=== PATIENT | female | born 1935 | race Hispanic/Latino ===

== ENCOUNTER 2020-01-17 12:55 | Inpatient (IN) | payer OTHER ==
[~2020-01-17] VITALS: Ht 152.4 cm; Wt 59.1 kg
[~2020-01-17 12:55] MED LIST: ACET-2247 PO; CEPH250C3 PO; ELTR75TA PO; LISI10TA7 PO; PANT40TA55 PO; probiotics PO
[2020-01-17] MEDS ORDERED: SODIUM CHLORIDE 0.9% 1000ML 2,000 ML IV ONE (13:08)
[2020-01-17] MEDS ORDERED: NOREPINEPHRINE BITARTRATE 1 MG/1 ML ML IV ONE (13:14)
[2020-01-17] MEDS ORDERED: SODIUM CHLORIDE 0.9% 250 ML IV ONE (13:14)
[2020-01-17] MEDS ORDERED: DEXTROSE 50%-WATER 50 ML DISP.SYRIN IV ONE (13:29)
[2020-01-17 14:01] LABS: BASOPHILS % (AUTO) 0.5 % (0.0-5.0); EOSINOPHILS % (AUTO) 1.4 % (0.0-8.0); HEMATOCRIT 25.3 % (36-48); MEAN CORPUSCULAR HEMOGLOBIN 29.4 pg (27.0-33.0); MEAN CORPUSCULAR HGB CONC 32.8 g/dL (32.0-36.0); MEAN CORPUSCULAR VOLUME 89.7 fL (79-99); MONOCYTES % (AUTO) 5.7 % (3.0-13.0); NEUTROPHILS % (AUTO) 80.6 % (40.0-77.0); PLATELET COUNT (AUTO) 64 K/uL (130-400); RED BLOOD CELL COUNT(AUTO) 2.82 MIL/uL (4.00-5.50); RED CELL DISTRIBUTION WIDTH 13.8 % (11.0-15.5); WHITE BLOOD COUNT (AUTO) 14.3 K/uL (4.8-10.8)
[2020-01-17 14:24] LABS: INR 1.13 (0.85-1.15); PARTIAL THROMBOPLASTIN TIME 34.8 SEC (26.3-35.5); PROTHROMBIN TIME 12.1 SEC (9.6-11.6)
[2020-01-17] MEDS ORDERED: ZOSYN 3.375GM+NS 50ML 50 ML IV ONE (14:24)
[2020-01-17 14:31] LABS: PLATELET MORPHOLOGY COMMENT DECREASED
[2020-01-17] MEDS ORDERED: FAMOTIDINE/PF 20 MG/2 ML VIAL IV ONE (15:20)
[2020-01-17] MEDS ORDERED: VANCOMYCIN 1GM+NS 250ML 250 ML IV SCH (15:22)
[2020-01-17 15:29] LABS: CREATININE 4.4 mg/dL (0.5-1.5); POTASSIUM 3.9 mmol/L (3.5-5.1)
[2020-01-17 15:53] LABS: ALBUMIN 2.2 g/dL (3.5-5.0); BILIRUBIN,TOTAL 0.5 mg/dL (0.2-1.0); TOTAL PROTEIN, SERUM 5.8 g/dL (6.0-8.3); TROPONIN I 0.3 ng/mL (0.00-0.06)
[2020-01-17] MEDS ORDERED: LIDOCAINE HCL-MPF 1% 2ML VIAL IJ PRN ×2 (16:30)
[2020-01-17] MEDS ORDERED: POTASSIUM CHLORIDE 20MEQ/100ML 100 ML IV PRN (16:30)
[2020-01-17] MEDS ORDERED: ACETAMINOPHEN 325 MG TAB PO PRN ×2 (16:30)
[2020-01-17] MEDS ORDERED: ONDANSETRON HCL 4 MG/2 ML VIAL IV PRN (16:30)
[2020-01-17] MEDS ORDERED: POTASSIUM CHLORIDE 10% ELIXIR 20 MEQ/15 ML UDCUP PO PRN (16:30)
[2020-01-17] MEDS ORDERED: POTASSIUM CHLORIDE 20 MEQ ERTAB PO PRN (16:30)
[2020-01-17] MEDS ORDERED: POTASSIUM CHLORIDE 10MEQ/100ML 100 ML IV PRN (16:30)
[2020-01-17] MEDS ORDERED: LACTULOSE 20 GM/30 ML UDCUP PO PRN (16:30)
[2020-01-17] MEDS ORDERED: VANCOMYCIN PROTOCOL PER PHARMACY IV SCH (16:45)
[2020-01-17] MEDS ORDERED: PHARMACY COMMUNICATION MISC SCH (17:30)
[2020-01-17 17:36] LABS: APPEARANCE,URINE CLEAR (CLEAR); BILIRUBIN,URINE SMALL (NEGATIVE); COLOR,URINE YELLOW (YELLOW); GLUCOSE, URINE (UA) NEGATIVE (NEGATIVE); KETONES,URINE NEGATIVE (NEGATIVE); LEUKOCYTE ESTERASE ,URINE LARGE (NEGATIVE); NITRATE,URINE NEGATIVE (NEGATIVE); OCCULT BLOOD,URINE LARGE (NEGATIVE); PH,URINE 5.5 (5.0-8.0); PROTEIN,URINE 30 mg/dL (NEGATIVE); UROBILINOGEN,URINE 0.2 mg/dL (0.2-1.0)
[2020-01-17 17:46] LABS: BACTERIA,URINE Moderate /HPF (None Seen); SQUAMOUS EPITHELIAL CELL,UR Rare /HPF (0-2); TRANSITIONAL EPI CELLS,URINE Rare /HPF (None Seen); WBC,URINE 26-50 /HPF (0-1)
[2020-01-17] MEDS ORDERED: FAMOTIDINE/PF 20 MG/2 ML VIAL IV SCH (21:00)
[2020-01-17] MEDS ORDERED: QUETIAPINE FUMARATE 25 MG TAB PO SCH (21:00)
[2020-01-17 21:10] VITALS: BP 85/54
[2020-01-17] MEDS: ZOSYN 3.375GM+NS 50ML 50 ML IV SCH (21:58)
[2020-01-17] MEDS: SODIUM CHLORIDE 0.9% 1000ML 1,000 ML IV SCH (21:59)
--- NOTE | 2020-01-17 22:00 | NUR ---
Patient arrived on unit. Patient responds to name. Speech garbled. Patient non ambulatory, left foot drop. No signs of distress noted. Resting quietly in bed. at bedside answering assessment questions. I/O to R knee, patent. Multiple skin tears and wounds all over chest and limbs. Excoriation to inner thighs,groin, and rosas area. Will continue to monitor.
[2020-01-18] VITALS (8 sets, daily range): BP systolic 106–145; BP diastolic 38–79
[2020-01-18] MEDS: ZOSYN 3.375GM+NS 50ML 50 ML IV SCH ×3 (04:16→20:50)
[2020-01-18 04:33] LABS: HEMATOCRIT 24.1 % (36-48); MEAN CORPUSCULAR HEMOGLOBIN 30.4 pg (27.0-33.0); MEAN CORPUSCULAR HGB CONC 32.8 g/dL (32.0-36.0); MEAN CORPUSCULAR VOLUME 92.7 fL (79-99); RED BLOOD CELL COUNT(AUTO) 2.6 MIL/uL (4.00-5.50); RED CELL DISTRIBUTION WIDTH 14.1 % (11.0-15.5); WHITE BLOOD COUNT (AUTO) 15.7 K/uL (4.8-10.8)
[2020-01-18 04:51] LABS: CREATININE 3.7 mg/dL (0.5-1.5); POTASSIUM 3.6 mmol/L (3.5-5.1)
--- NOTE | 2020-01-18 06:55 | NUR ---
dr whitlock paged for lactic of 2.7. awaiting call back
--- NOTE | 2020-01-18 07:15 | NUR ---
DR WHEELER INFORMED OF LACTIC OF 2.7 DISCONTINUE VANCO PUT IN ORDER FOR MEDIHONEY. APPLY ON WOUNDS
[2020-01-18] MEDS ORDERED: PANTOPRAZOLE SODIUM 40 MG TABLET.DR PO SCH (09:00)
[2020-01-18] MEDS ORDERED: FAMOTIDINE/PF 20 MG/2 ML VIAL IV SCH (11:00)
[2020-01-18] MEDS: METHYLPREDNISOLONE SOD SUCC 40MG/ML 1ML IVP SCH ×3 (11:06→20:49)
[2020-01-18] MEDS: SODIUM CHLORIDE 0.9% 1000ML 1,000 ML IV SCH ×2 (11:06→17:25)
--- NOTE | 2020-01-18 11:43 | NUR ---
INITIAL SW met with patient's spouse, Cesar Torre. Patient lives with spouse. She has no home services. DME: wheelchair, rollator, cane, BSC, shower chair. Patient needs help with ADL's and does not drive. Spouse helps with both. PCP is Dr. Monique Torre. Pharmacy is [facility] located in [place]. DCP is home. Spouse stated that patient was at [facility] in the past and did not like it. He stated that he would rather take her home. Spouse will consider home health for patient. Addendum: 01/18/20 at 1145 by APARNA PACK Amended: Links added.
[2020-01-18] MEDS ORDERED: RENAL DOSE IV SCH (13:15)
[2020-01-18 14:08] LABS: MYOGLOBIN 12083 ng/mL (10-92)
[2020-01-18 14:55] LABS: CREATINE KINASE, TOTAL 20513 U/L (21-232)
[2020-01-18] MEDS ORDERED: NICOTINE 7 MG/ 24 HR PATCH TD SCH (15:00)
[2020-01-18] MEDS: ELTROMBOPAG OLAMINE 75 MG PO SCH (20:56)
[2020-01-19] MEDS: SODIUM CHLORIDE 0.9% 1000ML 1,000 ML IV SCH ×4 (02:28→20:45)
[2020-01-19] MEDS: METHYLPREDNISOLONE SOD SUCC 40MG/ML 1ML IVP SCH (02:30)
[2020-01-19 03:45] VITALS: BP 125/70
[2020-01-19] MEDS: HONEY 1 APPL/ML TUBE TP SCH (04:06)
[2020-01-19 04:53] LABS: HEMATOCRIT 23.6 % (36-48); MEAN CORPUSCULAR HEMOGLOBIN 30.3 pg (27.0-33.0); MEAN CORPUSCULAR HGB CONC 32.6 g/dL (32.0-36.0); MEAN CORPUSCULAR VOLUME 92.9 fL (79-99); RED BLOOD CELL COUNT(AUTO) 2.54 MIL/uL (4.00-5.50); RED CELL DISTRIBUTION WIDTH 14.3 % (11.0-15.5); WHITE BLOOD COUNT (AUTO) 18.2 K/uL (4.8-10.8)
[2020-01-19 05:27] LABS: CREATININE 2.6 mg/dL (0.5-1.5); POTASSIUM 3.6 mmol/L (3.5-5.1)
[2020-01-19 07:30] VITALS: BP 117/55
[2020-01-19] MEDS: ZOSYN 3.375GM+NS 50ML 50 ML IV SCH ×2 (08:52→20:42)
[2020-01-19] MEDS ORDERED: FAMOTIDINE/PF 20 MG/2 ML VIAL IV SCH (09:00)
[2020-01-19] MEDS ORDERED: METHYLPREDNISOLONE SOD SUCC 40MG/ML 1ML IVP SCH (09:00)
[2020-01-19 11:13] VITALS: BP 140/93
--- NOTE | 2020-01-19 12:10 | NUR ---
DYSPHAGIA EVAL COMPLETED -S/S OF ASPIRATION AT THIS TIME. RECOMMEND PUREED, NECTAR THICK LIQUIDS VIA SPOON, PILLS CRUSHED WITH APPLESAUCE TOLERATED. Pt DOWNGRADED TO PUREED AND NECTAR THICK LIQUIDS SECONDARY TO ORAL DYSPHAGIA. LINING STRAP CLOSER REVIEWED RESULTS AND RECOMMENDATIONS WITH Pt, AT BEDSIDE, AND NURSE OMAR. LINING STRAP CLOSER EDUCATED PATIENT AND FAMILY MEMBER ON RISKS AND CONSEQUENCES OF ASPIRATION. ALL QUESTIONS ANSWERED AT THIS TIME. SPEECH THERAPY RECOMMENDED. RECOMMENDATIONS: DYSPHAGIA THERAPY 3-5XWEEK TO INCREASE ORAL MOTOR STRENGTH AND PHARYNGEAL SWALLOW: LTG#1: Pt WILL TOLERATE LEAST RESTRICTIVE DIET TO MEET NUTRITION/HYDRATION WITH NO S/S OF ASPIRATION. LTG#2: SKILLED EDUCATION Pt/FAMILY/STAFF STG#1: Pt WILL PARTICIPATE IN LARYNGEAL ELEVATION/EXCURSION EXERCISES WITH 80% ACCURACY. STG#2: Pt WILL PARTICIPATE IN TONGUE BASE RETRACTION EXERCISES WITH 80% ACCURACY. STG#3: Pt WILL PARTICIPATE IN ORAL MOTOR EXERCISES WITH 80% ACCURACY. STG#4: Pt WILL TOLERATE THERAPEUTIC TRIALS OF THIN LIQUIDS WITH NO OVERT S/S OF ASPIRATION. STG#5: Pt WILL BE ABLE TO PARTICIPATE IN MBSS AFTER 2-4 WEEKS OF THERAPEUTIC INTERVENTION. STG#6: SKILLED EDUCATION Pt/FAMILY/STAFF. Addendum: 01/19/[address] EZE ROJAS Amended: Links added.
--- NOTE | 2020-01-19 15:01 | NUR ---
DCP: [facility] Jennifer spoke to pt's Cesar Torre [phone]. Per he is in agreement with Dr Torre's recommendation for hospice but will need placement since they have no children and he is unable to care for her at home. JENNIFER educated on [facility] and is agreeable. selected [facility]. gave verbal consent for referral to be made Jennifer called Maricruz at [facility] and made referral. Pt info faxed to office. aMricruz to place pt on waiting at [facility]. DCP pending acceptance
--- NOTE | 2020-01-19 16:45 | NUR ---
DCP: [facility] AT [facility] Sw recd call from [facility] at [facility]. would like to meet tomorrow to sign consents. [facility] working on packet for [facility]. DCP pending acceptance from hospice and [facility]. Nurse Segun informed [place] will need Covid test results
[2020-01-19 16:55] VITALS: BP 124/59
[2020-01-19 19:10] VITALS: BP 118/72
[2020-01-19] MEDS: ELTROMBOPAG OLAMINE 75 MG PO SCH (20:39)
[2020-01-19 22:55] VITALS: BP 132/86
[2020-01-20 03:53] VITALS: BP 113/79
[2020-01-20] MEDS: HONEY 1 APPL/ML TUBE TP SCH (04:26)
[2020-01-20 04:52] LABS: POTASSIUM 3.1 mmol/L (3.5-5.1)
[2020-01-20] MEDS: SODIUM CHLORIDE 0.9% 1000ML 1,000 ML IV SCH ×2 (07:30→15:56)
--- NOTE | 2020-01-20 08:39 | NUR ---
HOSPICE UPDATE Sw recd call from [facility]. She is here in ER meeting with for consents. [facility] to get OOHDNR signed at that time as well. GISELLA informed that Covid test results needed for [facility] referral
[2020-01-20 08:46] VITALS: BP 132/46
[2020-01-20] MEDS: ZOSYN 3.375GM+NS 50ML 50 ML IV SCH ×2 (09:43→20:34)
[2020-01-20] MEDS: PREDNISONE 20 MG TABLET PO SCH (09:43)
[2020-01-20] MEDS: PANTOPRAZOLE SODIUM 40 MG TABLET.DR PO SCH (09:43)
[2020-01-20 12:08] VITALS: BP 125/78
--- NOTE | 2020-01-20 12:58 | NUR ---
FOLLOW UP COMPLETED. ESTATE AGENT COORDINATED WITH NURSE RODNEY. Pt TOLERATING DIET RECOMMENDATIONS WITH NO S/S OF ASPIRATION AT THIS TIME. CONTINUE WITH PLAN OF CARE TOLERATED. Addendum: 01/20/[address] EZE ROJAS Amended: Links added.
--- NOTE | 2020-01-20 14:00 | NUR ---
URINE CX RESULTS DR. WHEELER INFORMED OF URINE CX SENSITIVITY RESULTS. SIGNED SIGNED OID DNR.
--- NOTE | 2020-01-20 14:09 | NUR ---
[facility] PENDING [facility]OSPICE ACCEPTANCE Cris recd call [facility]. [facility] still working on getting medical records on pt for dx for acceptance. [facility] to update as soon as they can. GISELLA aware
--- NOTE | 2020-01-20 15:15 | NUR ---
CM Note: EMS arranged and faxed for today, pending approval for [facility]. dcp to home w/[facility]. Primary nurse aware. CM to cont to follow up.
[2020-01-20 16:00] VITALS: BP 129/63
--- NOTE | 2020-01-20 16:05 | NUR ---
APS RECEIVED PHONECALL FROM [facility] [phone]. INFORMED OF POSSIBLE DISCHARGE PLAN FOR TODAY HOME WITH HOSPICE, PENDING APPROVAL FROM [facility]. Carlene ARIZMENDI STATED HE WOULD CALL BACK LATER TODAY TO FOLLOW-UP IF PATIENT DISCHARGE HOME TODAY.
[2020-01-20 19:43] VITALS: BP 132/81
[2020-01-20] MEDS: ELTROMBOPAG OLAMINE 75 MG PO SCH (20:15)
[2020-01-20 23:05] VITALS: BP 139/85
[2020-01-21 03:03] VITALS: BP 144/79
[2020-01-21] MEDS: HONEY 1 APPL/ML TUBE TP SCH (05:13)
[2020-01-21 07:30] VITALS: BP 125/78
[2020-01-21] MEDS: PANTOPRAZOLE SODIUM 40 MG TABLET.DR PO SCH (08:10)
--- NOTE | 2020-01-21 08:48 | NUR ---
DCP: HOME WITH [facility] JENNIFER met with who reports DME was delivered last night. Sw spoke to [facility] and [facility] is ready for pt to dc. Sw notified Don nurse and CM of above.
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
[2020-01-21] MEDS: ARTIFICAL TEARS SOL 15 ML OD SCH ×2 (09:09→13:18)
[2020-01-21] MEDS: PREDNISONE 20 MG TABLET PO SCH (09:09)
[2020-01-21] MEDS: ZOSYN 3.375GM+NS 50ML 50 ML IV SCH (09:09)
[2020-01-21] MEDS: SODIUM CHLORIDE 0.9% 1000ML 1,000 ML IV SCH ×3 (09:19→15:00)
[2020-01-21 12:11] VITALS: BP 124/77
== END 2020-01-21 15:45 | DRG 871 ==
LOC: EDH 12:55 → EDHIP 14:50 → 4CH 21:30
PROVIDERS: ADMIT Internal Medicine; ATTEND Internal Medicine
DX: A41.9 Sepsis, unspecified organism (principal); G93.41 Metabolic encephalopathy; M62.82 Rhabdomyolysis; N17.9 Acute kidney failure, unspecified; N39.0 Urinary tract infection, site not specified; D69.3 Immune thrombocytopenic purpura; E44.1 Mild protein-calorie malnutrition; I12.9 Hypertensive chronic kidney disease with stage 1 through stage 4 chronic kidney disease, or unspecified chronic kidney disease; M19.90 Unspecified osteoarthritis, unspecified site; M21.372 Foot drop, left foot; M81.0 Age-related osteoporosis without current pathological fracture; N18.2 Chronic kidney disease, stage 2 (mild); B96.20 Unspecified Escherichia coli [E. coli] as the cause of diseases classified elsewhere; D46.9 Myelodysplastic syndrome, unspecified; E11.22 Type 2 diabetes mellitus with diabetic chronic kidney disease; Z51.5 Encounter for palliative care; Z66 Do not resuscitate; Z82.49 Family history of ischemic heart disease and other diseases of the circulatory system; Z79.899 Other long term (current) drug therapy; E78.2 Mixed hyperlipidemia; F41.1 Generalized anxiety disorder; Z98.42 Cataract extraction status, left eye; Z98.41 Cataract extraction status, right eye
CPT/HCPCS: 36415; 71045; 80048; 80053; 81001; 82550; 82948; 83605; 83874; 84145; 84484; 85025; 85027; 85610; 85730; 87040; 87077; 87088; 87186; 92610; 93005; 99291; A4344; G0378; J2543; J2920; J3490; J7030; J7050; J7070